=== PATIENT | female | born 1990 | race Caucasian/White ===

== ENCOUNTER 2017-11-18 07:42 | Outpatient (CLI) | payer OTHER ==
[2017-11-18] MEDS ORDERED: Gadobenate Dimeglumine 529 MG/1 ML (20ML VIAL) ONE (18:26)
== END 2017-11-18 07:43 | disposition home or self-care (01) ==
LOC: BICMRI 07:42
PROVIDERS: ATTEND Internal Medicine
DX: G43.909 Migraine, unspecified, not intractable, without status migrainosus (principal)
CPT/HCPCS: 70553; A9579

== ENCOUNTER 2023-05-30 13:33 | Outpatient (CLI) | payer BC | END 2023-05-30 13:34 | disposition home or self-care (01) | LOC: BICMRI 13:33 | PROVIDERS: ATTEND Orthopaedic Surgery | DX: M25.531 Pain in right wrist (principal); M25.831 Other specified joint disorders, right wrist; M85.48 Solitary bone cyst, other site; R93.6 Abnormal findings on diagnostic imaging of limbs ==

== ENCOUNTER 2023-07-18 08:36 | Outpatient (CLI) | payer BC ==
[2023-07-18] MEDS ORDERED: Iopamidol 0 ML ONE (08:54)
[2023-07-18 09:29] LABS: BHCG - Serum Negative (NEGATIVE); Pregs Control Background? CLEAR/WHITE (CLR/WHITE); Pregs Control Bar Appear? YES (CONTROL BAR)
[2023-07-18] MEDS ORDERED: Iopamidol-370 76% 500 ML BOT (X-RAY USE) FS ONE ×2 (10:06→10:25)
[2023-07-18] MEDS ORDERED: Iopamidol 30 ML ONE (10:09)
== END 2023-07-18 08:37 | disposition home or self-care (01) ==
LOC: RAD 08:36
PROVIDERS: ATTEND Advanced Practice Midwife
DX: Z32.00 Encounter for pregnancy test, result unknown (principal); Z78.9 Other specified health status; N88.2 Stricture and stenosis of cervix uteri
CPT/HCPCS: 58340; 74740; 84703; Q9967

== ENCOUNTER 2023-08-26 05:44 | Day surgery (SDC) | payer BC ==
[2023-08-23 16:31] VITALS: BMI 25.4
[2023-08-26] MEDS ORDERED: Bacitracin Zinc Ointment 30 gm TUBE ONE (06:23)
[2023-08-26] MEDS ORDERED: Bupivacaine PF 0.5% 30 ML VIAL ONE (06:23)
[2023-08-26] MEDS ORDERED: EPINEPHrine 1 MG/ML VIAL ONE (06:51)
[2023-08-26] MEDS ORDERED: fentaNYL 50 mcg/mL 1 mL Vial ONE (07:00)
[2023-08-26] MEDS ORDERED: Midazolam HCl 2 mg/2 ml Vial ONE (07:00)
[2023-08-26] MEDS ORDERED: Lidocaine 1% PF 5 ML VIAL ONE (07:03)
[2023-08-26] MEDS ORDERED: Dexmedetomidine 200 MCG/2 ML VIAL ONE (07:28)
[2023-08-26] MEDS ORDERED: Propofol 1,000 MG/100 ML VIAL IV ONE (07:28)
[2023-08-26] MEDS ORDERED: PROPOFOL 20 ML ONE (07:33)
[2023-08-26] MEDS ORDERED: Lidocaine 2% PF 5 ML VIAL ONE (07:33)
[2023-08-26] MEDS ORDERED: CEFAZOLIN 2 GM VIAL ONE (08:28)
[2023-08-26] MEDS ORDERED: Sodium Chloride 0.9% 100 ML ONE (08:28)
[2023-08-26] MEDS ORDERED: Ondansetron PF 4 MG/2 ML Vial ONE (09:06)
[2023-08-26] MEDS ORDERED: Ketorolac Tromethamine 30 MG (1 mL) VIAL ONE ×2 (09:06→12:48)
[2023-08-26] MEDS ORDERED: Dexamethasone 20 MG/5 ML VIAL ONE (09:06)
[2023-08-26] MEDS ORDERED: Promethazine HCl 25 MG/ML VIAL ONE (13:07)
== END 2023-08-26 13:50 | disposition home or self-care (01) ==
LOC: SDC 05:44
PROVIDERS: ATTEND Orthopaedic Surgery Hand Surgery
PROC: 0MQ54ZZ Repair Right Wrist Bursa and Ligament, Percutaneous Endoscopic Approach (ICD-10-PCS; principal; 2023-08-26)
PROC: 0PBK0ZZ Excision of Right Ulna, Open Approach (ICD-10-PCS; principal; 2023-08-26)
PROC: 0RBN0ZZ Excision of Right Wrist Joint, Open Approach (ICD-10-PCS; principal; 2023-08-26)
DX: S63.591A Other specified sprain of right wrist, initial encounter (principal); M65.9 Synovitis and tenosynovitis, unspecified; M67.431 Ganglion, right wrist; M25.831 Other specified joint disorders, right wrist; Z88.2 Allergy status to sulfonamides; Z88.1 Allergy status to other antibiotic agents; X58.XXXA Exposure to other specified factors, initial encounter
CPT/HCPCS: 88304; A6223; C1713; J0171; J0665; J1100; J1885; J2001; J2250; J2405; J2550; J2704; J3010; J3490